=== PATIENT | female | born 1970 | race Caucasian/White ===

== ENCOUNTER 2021-05-14 11:29 | Emergency (ER) | payer OTHER ==
[~2021-05-14] VITALS: Ht 177.8 cm; Wt 108.9 kg
[2021-05-14] MEDS ORDERED: ATOMOXETINE HCL80 MG PO (11:44)
[2021-05-14] MEDS ORDERED: BUSPIRONE HCL10 MG PO (11:44)
[2021-05-14] MEDS ORDERED: METOPROLOL SUCC50 M1 PO (11:44)
[2021-05-14] MEDS ORDERED: SUMATRIPTAN SUC25 M1 PO (11:45)
[2021-05-14] MEDS ORDERED: DOTTI1 EAC1 TD (11:45)
[2021-05-14] MEDS ORDERED: SUMATRIPTA6 MG/0.53 SQ (11:46)
[2021-05-14 17:34] LABS: BASO # 0.1 10*3/uL (0.0-0.1); BASO % 0.8 % (0.0-1.0); EOS # 0.1 10*3/uL (0.0-0.4); EOS % 1.7 % (1.0-4.0); HEMATOCRIT 41.2 % (37.0-47.0); LYMPH # 1.6 10*3/uL (1.3-4.4); LYMPH % 25.9 % (27.0-41.0); MEAN CELL VOLUME 89.6 fl (81.0-99.0); MEAN CORPUSCULAR HGB 28.3 pg (27.0-31.0); MEAN CORPUSCULAR HGB CONC 31.6 g/dl (33.0-37.0); MEAN PLATELET VOLUME 9.8 fl (9.6-12.3); MONO # 0.7 10*3/uL (0.1-1.0); MONO % 10.4 % (3.0-9.0); NEUT # 3.9 10*3/uL (2.3-7.9); PLATELET COUNT AUTOMATED 266 10*3/uL (130-400); RED CELL DISTRI WIDTH 14.2 % (0-14.5); WHITE BLOOD COUNT 6.3 10*3/uL (4.8-10.8)
[2021-05-14 17:46] LABS: ACT PARTIAL THROMBO TIME 27.3 SECONDS (20.0-32.1)
[2021-05-14 17:51] LABS: ALBUMIN 3.4 gm/dl (3.1-4.5); ALKALINE PHOSPHATASE 69 U/L (45-117); BUN 13 mg/dl (7-24); CHLORIDE 106 mmol/L (98-107); CREATININE 0.76 mg/dL (0.55-1.02); LIPASE 89 U/L (73-393); POTASSIUM 3.4 mmol/L (3.5-5.1); SGOT/AST 13 IU/L (3-35); SGPT/ALT 22 U/L (12-78); SODIUM 138 mmol/L (136-145); TOTAL PROTEIN 7.3 gm/dL (6.4-8.2)
[2021-05-14 19:21] LABS: BILIRUBIN Negative (Negative); BLOOD 1+ (Negative); CLARITY Cloudy (Clear); COLOR Yellow (Yellow); GLUCOSE 1+ (Negative); KETONE Negative (Negative); LEUKO ESTERASE Negative (Negative); NITRITE Negative (Negative); PH 5.5 (4.5-8.0); SPECIFIC GRAVITY 1.025 (1.001-1.030); UROBILINOGEN 0.2 E.U./dl (0.0-1.0)
[2021-05-14 19:52] LABS: BACTERIA 2+; EPITHELIAL CELLS TNTC; WBC 0-2 wbc/hpf (0-5)
== END 2021-05-14 20:21 | disposition home or self-care (01) ==
LOC: ED 11:29
PROVIDERS: Physician Assistant
DX: I10 Essential (primary) hypertension (principal); Z79.899 Other long term (current) drug therapy